=== PATIENT | female | born 1995 | race Caucasian/White ===

== ENCOUNTER 2016-07-06 18:32 | Emergency (ER) | payer BC ==
[2016-07-06 18:56] VITALS: RESP 16
[2016-07-06] MEDS ORDERED: NS 1,000 ML IV ONE (19:11)
[2016-07-06] MEDS ORDERED: METOCLOPRAMIDE 10 MG/2 ML VIAL IVP ONE (19:11)
[2016-07-06] MEDS ORDERED: MAGNESIUM SULF 2 GM/WATER 50 ML IV ONE (19:13)
[2016-07-06] MEDS ORDERED: HYDROmorphONE/DILAUDID 1 MG/ML SYR IVP ONE (19:13)
--- NOTE | 2016-07-06 19:16 | EDPHY ---
H & P Stated Complaint: Migraine x 6 days;wants "cocktail";also has bilat ear infects under tx Time Seen by Provider: 07/06/16 19:05 HPI/ROS: CHIEF COMPLAINT: Migraine HISTORY OF PRESENT ILLNESS: The patient is a 21-year-old female who comes to the emergency department complaining of a migraine headache for the last 6 days. She states that she has a history of migraines. This is typical of her symptoms. She did tried taking tramadol at home without significant relief. She in the past had been on a daily prophylactic medication but discontinued it because was not very effective. She has not had a fever. She has not had any trauma. She has some sensitivity to loud noises but not to light. No weakness, numbness or paresthesias. REVIEW OF SYSTEMS: Constitutional: denies: chills, fever, recent illness, recent injury EENTM: denies: blurred vision, double vision, nose congestion Respiratory: denies: cough, shortness of breath Cardiac: denies: chest pain, irregular heart rate, lightheadedness, palpitations Gastrointestinal/Abdominal: denies: abdominal pain, diarrhea, nausea, vomiting, blood streaked stools Genitourinary: denies: dysuria, frequency, hematuria, pain Musculoskeletal: denies: joint pain, muscle pain Skin: denies: lesions, rash, jaundice, bruising Neurological: See HPI denies: numbness, paresthesia, tingling, dizziness, weakness Hematologic/Lymphatic: denies: blood clots, easy bleeding, easy bruising Immunologic/allergic: denies: HIV/AIDS, transplant EXAM: GENERAL: Well-appearing, well-nourished and in no acute distress. HEAD: Atraumatic, normocephalic. EYES: Pupils equal round and reactive to light, extraocular movements intact, sclera anicteric, conjunctiva are normal. ENT: TMs normal, nares patent, oropharynx clear without exudates. Moist mucous membranes. NECK: Normal range of motion, supple without lymphadenopathy or JVD. LUNGS: Breath sounds clear to auscultation bilaterally and equal. No wheezes rales or rhonchi. HEART: Regular rate and rhythm without murmurs, rubs or gallops. ABDOMEN: Soft, nontender, normoactive bowel sounds. No guarding, no rebound. No masses appreciated. BACK: No CVA tenderness, no spinal tenderness, step-offs or deformities EXTREMITIES: Normal range of motion, no pitting or edema. No clubbing or cyanosis. NEUROLOGICAL: Cranial nerves II through XII grossly intact. Normal speech, normal gait. 5/5 strength, normal movement in all extremities, normal sensation PSYCH: Normal mood, normal affect. SKIN: Warm, dry, normal turgor, no visible rashes or lesions. Source: Patient Exam Limitations: No limitations - Personal History LMP (Females 10-55): 22-28 Days Ago Current Tetanus Diphtheria and Acellular Pertussis (TDAP): Yes Tetanus Vaccine Date: 2013 - Medical/Surgical History Hx Asthma: Yes Hx Chronic Respiratory Disease: No Hx Diabetes: No Hx Cardiac Disease: No Hx Renal Disease: No Hx Cirrhosis: No Hx Alcoholism: No Hx HIV/AIDS: No Hx Splenectomy or Spleen Trauma: No Other PMH: asthma, dysautonomia. hx migraines - Family History Significant Family History: No pertinent family hx - Social History Smoking Status: Never smoked Alcohol Use: Sober Drug Use: None Constitutional: Initial Vital Signs Heart Rate 80 07/06/16 18:45 Respiratory Rate 16 07/06/16 18:45 Blood Pressure 119/72 07/06/16 18:45 O2 Sat (%) 98 07/06/16 18:45 O2 Delivery Mode Room Air Allergies/Adverse Reactions: droperidol Allergy (Severe, Verified 07/06/16 18:56) Anaphylaxis latex Allergy (Mild, Verified 07/06/16 18:56) Rash calcium carbonate [From DHEA] Allergy (Verified 07/06/16 18:52) calcium phosphate,dibasic [From DHEA] Allergy (Verified 07/06/16 18:52) prasterone (DHEA) [From DHEA] Allergy (Verified 07/06/16 18:52) Home Medications: Medication Instructions Recorded Albuterol Sulfate [Proventil Hfa] 6.7 gm IH 07/06/16 Cefdinir [Omnicef (*)] 300 mg PO 07/06/16 Metoclopramide [Reglan 10 mg tab 10 mg PO BID PRN #10 tab 07/06/16 (RX)] Medical Decision Making ED Course/Re-evaluation: Patient has a normal neurologic exam and a headache that she states is consistent to previous. She is requesting magnesium and Reglan and Dilaudid to help control her pain. She states that often they will give her Benadryl as well. Will also give her fluids. Treat and reassess. 8:45 p.m. the patient is feeling completely better. She is eager to go home. She declines further workup or treatment at this time. She is requesting a prescription for Reglan. We discussed indications for returning. Discussed follow-up. Differential Diagnosis: Partial list of the Differential diagnosis considered include but were not limited to; migraine, tension headache and although unlikely based on the history and physical exam, I also considered sinusitis, infection, meningitis, head injury. I discussed these differential diagnoses and the plan with the patient as well as the usual and expected course. The patient understands that the diagnosis is provisional and that in medicine we are not always correct and that further workup is often warranted. Usual and customary warnings were given. All of the patient's questions were answered. The patient was instructed to return to the emergency department should the symptoms at all worsen or return, otherwise to followup with the physician as we discussed. - Data Points Medications Given: Discontinued Medications Diphenhydramine HCl (Benadryl Injection) 25 mg IVP EDNOW ONE Stop: 07/06/16 19:12 Last Admin: 07/06/16 19:45 Dose: 25 mg Hydromorphone HCl (Dilaudid) 1 mg IVP EDNOW ONE Stop: 07/06/16 19:14 Last Admin: 07/06/16 19:45 Dose: 1 mg Sodium Chloride (Ns) 1,000 mls @ 0 mls/hr IV ONCE ONE PRN Reason: Wide Open Stop: 07/06/16 19:12 Last Admin: 07/06/16 19:40 Dose: 1,000 mls Magnesium Sulfate (Magnesium Sulf 2 Gm (Premix)) 50 mls @ 50 mls/hr IV EDNOW ONE Stop: 07/06/16 20:12 Last Admin: 07/06/16 19:45 Dose: 50 mls Metoclopramide HCl (Reglan Injection) 10 mg IVP EDNOW ONE Stop: 07/06/16 19:12 Last Admin: 07/06/16 19:45 Dose: 10 mg Departure - Departure Disposition: Home, Routine, Self-Care Clinical Impression: Migraine Qualifiers: Migraine type: without aura Status migrainosus presence: without status migrainosus Intractability: not intractable Qualified Code(s): G43.009 - Migraine without aura, not intractable, without status migrainosus Condition: Fair Instructions: Migraine Headache (ED) Referrals: NONE *PRIMARY CARE P,. [Primary Care Provider] - As per Instructions Evan June MD [Medical Doctor] - As per Instructions Stand Alone Forms: School Excuse Prescriptions: Metoclopramide [Reglan 10 mg tab (RX)] 10 mg PO BID PRN #10 tab PRN Reason: Headache
[2016-07-06 20:44] VITALS: O2SAT 96
[2016-07-06 21:02] VITALS: BP 106/47; PULSE 89; TEMP 97.9
== END 2016-07-06 21:02 | disposition home or self-care (01) ==
DX: G43.009 Migraine without aura, not intractable, without status migrainosus (principal); J45.909 Unspecified asthma, uncomplicated; Z91.040 Latex allergy status
CPT/HCPCS: 96365; 96366; J1170; J1200; J2765

== ENCOUNTER 2016-08-26 20:45 | Emergency (ER) | payer BC ==
[2016-08-26 20:52] VITALS: TEMP 99
[2016-08-26] MEDS ORDERED: NS 1,000 ML IV ONE ×2 (22:17→23:28)
--- NOTE | 2016-08-26 22:22 | EDPHY ---
H & P Stated Complaint: feels off, run down, mitochrondrial disease Time Seen by Provider: 08/26/16 22:02 HPI/ROS: HPI The patient presents with "feeling off" for the last 3 days. This started after a choir concert that she had 3 days ago and she was standing for a long time and she thinks this provoked her symptoms. She says she she has had episodes which she twitches and shakes, though is awake and alert and then afterwards feels tired and nauseated. She has been evaluated for these seemingly extensively in the past with EEG MRI and all this testing was normal. 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 She says the episodes that she is having occur about 5 times a day, and last for 2-3 minutes with a prolonged recovery.. Tonight she has had many episodes and her mental him boyfriend brought her in because they were concerned. She says she is feeling more stressed than usual and is not sleeping well. She denies any new medications. REVIEW OF SYSTEMS Constitutional: No fever, no chills. Eyes: No discharge. ENT: No sore throat. Cardiovascular: No chest pain, no palpitations. Respiratory: No cough, no shortness of breath. Gastrointestinal: No abdominal pain, no vomiting. Genitourinary: No hematuria. Musculoskeletal: No back pain. Skin: No rashes. Neurological: No headache. 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, pot syndrome, dysautonomia, migraine headaches, get dysmotility, Giuseppe-Danlos Soc Hx: From [place], college student FHx: PHYSICAL General Appearance: Alert, no distress Eyes: Pupils equal and round no pallor or injection ENT, Mouth: Mucous membranes moist Respiratory: There are no retractions, lungs are clear to auscultation Cardiovascular: Regular rate and rhythm Gastrointestinal: Abdomen is soft and non-tender, no masses, bowel sounds normal Neurological: A&O, cranial nerves 2-12 intact, 5/5 strength in upper and lower extremities which is symmetric, moves all extremities Skin: Warm and dry, no rashes Musculoskeletal: Neck is supple non tender Extremities: symmetrical, full range of motion Psychiatric: Patient is oriented X 3, there is no agitation Source: Patient Exam Limitations: No limitations - Personal History LMP (Females 10-55): Now Tetanus Vaccine Date: 2013 - Medical/Surgical History Hx Asthma: Yes Hx Chronic Respiratory Disease: No Hx Diabetes: No Hx Cardiac Disease: No Hx Renal Disease: No Hx Cirrhosis: No Hx Alcoholism: No Hx HIV/AIDS: No Hx Splenectomy or Spleen Trauma: No Other PMH: asthma, dysautonomia, mitochondrial disease. hx migraines - Social History Smoking Status: Never smoked Constitutional: Initial Vital Signs Temperature (C) 37.2 C 08/26/16 20:49 Heart Rate 72 08/26/16 20:49 Respiratory Rate 20 08/26/16 20:49 Blood Pressure 119/72 08/26/16 20:49 O2 Sat (%) 96 08/26/16 20:49 O2 Delivery Mode Room Air Allergies/Adverse Reactions: droperidol Allergy (Severe, Verified 08/26/16 20:47) Anaphylaxis latex Allergy (Mild, Verified 08/26/16 20:47) Rash calcium carbonate [From DHEA] Allergy (Verified 08/26/16 20:47) calcium phosphate,dibasic [From DHEA] Allergy (Verified 08/26/16 20:47) prasterone (DHEA) [From DHEA] Allergy (Verified 08/26/16 20:47) Home Medications: Medication Instructions Recorded Albuterol Sulfate [Proventil Hfa] 6.7 gm IH 07/06/16 Cefdinir [Omnicef (*)] 300 mg PO 07/06/16 Metoclopramide [Reglan 10 mg tab 10 mg PO BID PRN #10 tab 07/06/16 (RX)] Zofran 08/26/16 traMADol 08/26/16 Medical Decision Making Differential Diagnosis: This is a 21-year-old female with a seemingly complex past medical history who presents with increasing which she describes as episodes which involved twitching of her upper and lower extremities while she is conscious, then fatigue and nausea following. She has been extensively evaluated for these in the past with no clear underlying cause. To me this could very well be pseudo seizure episodes. She asks for a banana bag as this has helped her symptoms before. I explained to her that we do not stock these anymore, I could offer her IV fluids, though I do not see a clear indication to do so. She is requesting these as they have helped her symptoms in the past. Differential diagnosis includes pseudo seizure, anxiety, insomnia. In the emergency room, the patient was given 2 L of IV fluids per her request. She was given nausea for vomiting. She did have an episode here witnessed by me which included twitching of her left upper and lower extremities with decreased responsiveness. Afterward she was awake and alert. This appears to me to be a pseudo-seizure given her negative seizure workup previously. She felt well enough afterwards to be discharged. I have instructed her to rest and drink plenty of fluids. She can follow up at the [facility] in the next 1-2 days. - Data Points Medications Given: Discontinued Medications Sodium Chloride (Ns) 1,000 mls @ 0 mls/hr IV ONCE ONE PRN Reason: Wide Open Stop: 08/26/16 22:18 Last Admin: 08/26/16 22:51 Dose: 1,000 mls Sodium Chloride (Ns) 1,000 mls @ 0 mls/hr IV ONCE ONE PRN Reason: Wide Open Stop: 08/26/16 23:29 Last Admin: 08/26/16 23:35 Dose: 1,000 mls Ondansetron HCl (Zofran) 4 mg IVP EDNOW ONE Stop: 08/26/16 23:29 Last Admin: 08/26/16 23:36 Dose: 4 mg Departure - Departure Disposition: Home, Routine, Self-Care Clinical Impression: Fatigue, Episode of shaking Condition: Good Instructions: Fatigue (ED) Referrals: [facility] [Outside] - As per Instructions
[2016-08-26] MEDS ORDERED: ONDANSETRON 4 MG/2 ML VIAL IVP ONE (23:28)
[2016-08-26 23:36] VITALS: RESP 16
[2016-08-27 00:22] VITALS: BP 118/75; PULSE 61; O2SAT 96
== END 2016-08-27 00:10 | disposition home or self-care (01) ==
DX: R25.1 Tremor, unspecified (principal); R53.83 Other fatigue; J45.909 Unspecified asthma, uncomplicated; Z91.040 Latex allergy status
CPT/HCPCS: 96374; J2405

== ENCOUNTER 2017-02-23 12:35 | Emergency (ER) | payer BC ==
[2017-02-23] MEDS ORDERED: METOCLOPRAMIDE 10 MG/2 ML VIAL IVP ONE (13:06)
[2017-02-23] MEDS ORDERED: DEXAMETHASONE 10 MG/ML VIAL IVP ONE (13:06)
[2017-02-23] MEDS ORDERED: MAGNESIUM SULF 2 GM/WATER 50 ML IV ONE (13:16)
--- NOTE | 2017-02-23 13:18 | EDPHY ---
H & P Time Seen by Provider: 02/23/17 13:06 HPI/ROS: CHIEF COMPLAINT: Migraine headache HISTORY OF PRESENT ILLNESS: The patient is a 21 y/o female with a history of chronic headaches complaining of a migraine headache since Thursday, 3 days ago. She was seen by a children's neurologist in [place], but hasn't seen one since she moved to [place]. She has taken Tramadol every 6 hours since her migraine began on Thursday. Her migraine worsened last night and is primarily a frontal headache, with sharp pain on her temples. She has been nauseous, weak, and notes that her limbs hurt. She believes that the weather aggravates her headaches. This headache is typical for her. Denies vomiting, head injury, neck pain or other worsening of symptoms. REVIEW OF SYSTEMS: Aside from elements discussed in the HPI, a comprehensive 10-point review of systems was reviewed and is negative. Past Medical/Surgical History: Chronic headache Social History: Friends at bedside, student at , from [place] Smoking Status: Never smoked Physical Exam: General Appearance: In a dark room, speaking softly Eyes: Pupils equal and round, no conjunctival pallor or injection ENT, Mouth: Mucous membranes moist Neck: Normal inspection Respiratory: Lungs are clear to auscultation Cardiovascular: Regular rate and rhythm Gastrointestinal: Abdomen is soft and non-tender Neurological: Alert, oriented x3, cranial nerves II through XII intact, motor 5 /5, sensory intact to light touch, normal gait Skin: Warm and dry, no rash Extremities: Nontender, no pedal edema Psychiatric: Mood and affect normal Constitutional: Initial Vital Signs Temperature (C) 37.2 C 02/23/17 12:47 Heart Rate 64 02/23/17 12:47 Respiratory Rate 18 02/23/17 12:47 Blood Pressure 115/74 02/23/17 12:47 O2 Sat (%) 98 02/23/17 12:47 O2 Delivery Mode Room Air Allergies/Adverse Reactions: droperidol Allergy (Severe, Verified 08/26/16 20:47) Anaphylaxis latex Allergy (Mild, Verified 08/26/16 20:47) Rash calcium carbonate [From DHEA] Allergy (Verified 08/26/16 20:47) calcium phosphate,dibasic [From DHEA] Allergy (Verified 08/26/16 20:47) prasterone (DHEA) [From DHEA] Allergy (Verified 08/26/16 20:47) Home Medications: Medication Instructions Recorded Albuterol Sulfate [Proventil Hfa] 6.7 gm IH 07/06/16 Cefdinir [Omnicef (*)] 300 mg PO 07/06/16 Metoclopramide [Reglan 10 mg tab 10 mg PO BID PRN #10 tab 07/06/16 (RX)] Zofran 08/26/16 traMADol 08/26/16 Medical Decision Making ED Course/Re-evaluation: The patient is a 21 y/o female with a history of chronic headaches, presenting with a typical migraine headache for 3 days. Reglan, Benadryl, Decadron and magnesium IV given. Magnesium IV given at patient request, as magnesium usually makes her headaches much better. 1400: Reassessed patient, she is feeling better after the medication. 1439: Reassessed patient she is continuing to feel better. I have referred her for an outpatient follow up with Dr. Toledo, neurologist. Return precautions provided; patient is comfortable with this plan. Differential Diagnosis: Headache including but not limited to subarachnoid hemorrhage, migraine headache , tension headache and infectious causes such as meningitis, pharyngitis and sinusitis. - Data Points Medications Given: Discontinued Medications Dexamethasone (Decadron Injection) 10 mg IVP EDNOW ONE Stop: 02/23/17 13:07 Last Admin: 02/23/17 13:40 Dose: 10 mg Diphenhydramine HCl (Benadryl Injection) 25 mg IVP EDNOW ONE Stop: 02/23/17 13:07 Last Admin: 02/23/17 13:40 Dose: 25 mg Magnesium Sulfate (Magnesium Sulf 2 Gm (Premix)) 50 mls @ 50 mls/hr IV EDNOW ONE Stop: 02/23/17 14:15 Last Admin: 02/23/17 13:39 Dose: 50 mls Metoclopramide HCl (Reglan Injection) 10 mg IVP EDNOW ONE Stop: 02/23/17 13:07 Last Admin: 02/23/17 13:40 Dose: 10 mg Departure - Departure Disposition: Home, Routine, Self-Care Clinical Impression: Migraine headache Qualifiers: Migraine type: unspecified Status migrainosus presence: without status migrainosus Intractability: not intractable Qualified Code(s): G43.909 - Migraine, unspecified, not intractable, without status migrainosus Condition: Good Instructions: Migraine Headache (ED) Additional Instructions: Follow up with a neurologist for unimproved symptoms, you have been referred to Dr. Toledo, neurologist. Return to the emergency department immediately for recurrence of headache, nausea, vomiting, numbness, weakness, neck pain, fever or other concerns. Use Tylenol and/or ibuprofen as directed. Referrals: [facility] [Other] - As per Instructions German Toledo DO [Medical Doctor] - As per Instructions Report Scribed for: Wendy Avina Report Scribed by: Peggy Brooks Date of Report: 02/23/17 Time of Report: 13:09 Physician Review and Approval Statement: 02/23/17 13:09 Portions of this note were transcribed by a durable medical equipment technician. I personally performed a history, physical exam, medical decision making, and confirmed accuracy of information the transcribed note.
[2017-02-23 14:55] VITALS: RESP 16; O2SAT 96
[2017-02-23 14:56] VITALS: BP 98/57; PULSE 66; TEMP 98.2
== END 2017-02-23 14:56 | disposition home or self-care (01) ==
DX: G43.909 Migraine, unspecified, not intractable, without status migrainosus (principal); Z91.040 Latex allergy status
CPT/HCPCS: 96365; J1100; J1200; J2765

== ENCOUNTER 2018-10-29 21:44 | Emergency (ER) | payer OTHER, BC | END 2018-10-29 22:40 | disposition home or self-care (01) | LOC: CED 21:44 ==

== ENCOUNTER 2018-10-31 13:01 | Emergency (ER) | payer OTHER, BC | END 2018-10-31 14:43 | disposition home or self-care (01) | LOC: CED 13:01 ==